=== PATIENT | male | born 1940 | race Caucasian/White ===

== ENCOUNTER 2019-04-21 08:03 | Emergency (ER) | payer MEDICARE, OTHER ==
[~2019-04-21] VITALS: Ht 167.6 cm; Wt 81.6 kg
[2019-04-21 08:23] VITALS: BP 158/76
[2019-04-21] MEDS ORDERED: LIDOCAINE VISCOUS 2% 15ML UD PO ONE (08:30)
[2019-04-21] MEDS ORDERED: cefTRIAXone 1GM/50ML D5W 50 ML IV ONE (08:30)
[2019-04-21] MEDS ORDERED: methylPREDNISolone SOD SUCC 125 MG/2 ML VL IV ONE (08:30)
[2019-04-21] MEDS ORDERED: CLINDAMYCIN 600MG IV 50 ML IV ONE (08:45)
== END 2019-04-21 09:54 | disposition home or self-care (01) ==
LOC: ER 08:06
DX: S01.532A Puncture wound without foreign body of oral cavity, initial encounter (principal); K12.2 Cellulitis and abscess of mouth; E11.9 Type 2 diabetes mellitus without complications; I10 Essential (primary) hypertension; Z88.2 Allergy status to sulfonamides; W50.4XXA Accidental scratch by another person, initial encounter; Y93.89 Activity, other specified; Y92.89 Other specified places as the place of occurrence of the external cause; Y99.8 Other external cause status
CPT/HCPCS: 96365; 96375; 99283; J0696; J2930; J3490

== ENCOUNTER 2019-05-03 06:35 | Emergency (ER) | payer MEDICARE, OTHER ==
[~2019-05-03] VITALS: Ht 167.6 cm; Wt 81.6 kg
[2019-05-03 06:58] VITALS: BP 112/76
[2019-05-03] MEDS ORDERED: cefTRIAXone SOD 1,000 MG VL IM ONE (07:15)
[2019-05-03] MEDS ORDERED: LIDOCAINE VISCOUS 2% 15ML UD PO ONE (07:15)
[2019-05-03] MEDS: methylPREDNISolone SOD SUCC 125 MG/2 ML VL IM ONE ×2 (07:23→07:36)
== END 2019-05-03 07:37 | disposition home or self-care (01) ==
LOC: ER 06:35
DX: K12.2 Cellulitis and abscess of mouth (principal); E11.9 Type 2 diabetes mellitus without complications; E78.5 Hyperlipidemia, unspecified; I10 Essential (primary) hypertension; Z88.2 Allergy status to sulfonamides
CPT/HCPCS: 96372; 99283; J2930

== ENCOUNTER 2025-09-12 14:57 | Emergency (ER) | payer MEDICARE, OTHER ==
[~2025-09-12] VITALS: Ht 170.2 cm; Wt 79.3 kg
[2025-09-12] MEDS: NEOMYCIN-BACITRACIN-POLYM UNITDOSE PKG TOP OINT TOP ONE (16:24)
[2025-09-12] MEDS: TETANUS-DIPTH-ACEL PERTUSSIS 0.5ML SYR Tdap IM ONE (16:25)
[2025-09-12] MEDS: LIDOCAINE 1% HCL (LOCAL ANESTH.) INJ 20ML MDV ID ONE (16:26)
[2025-09-12] MEDS ORDERED: AUG875T PO (16:55)
--- NOTE | 2025-09-12 16:55 | ED.PDOC ---
History of Present Illness(SKN HPI Comments 85-year-old male presents to the ER with a prior MHx of diabetes in the chief complaint of animal attack. The patient reports that he was attacked bite to dogs 0, today. The patient does have multiple puncture wounds to the bilateral hands and an abrasion on the left elbow. Denies any other symptoms at this time. Chief Complaint: Animal Bite Time Seen by MD: 16:30 Primary Care Provider: TRACY History of Present Illness: Nurses Notes, Medications, Allergies Allergies: Coded Allergies: Sulfa Antibiotics (Verified Allergy, Unknown, 04/21/19) Home Meds Active Scripts Amoxicillin & Pot Clavulanate (AUGMENTIN TABLET) 875 Mg Tb, 875 MG PO BID for 7 Days, #14 TAB 0 Refills Prov:MOOMARLIN NP 09/12/25 Information Source: Patient, Spouse Mode of Arrival: Ambulatory Severity: Moderate Timing: Minutes Duration: Since onset, Minutes Prehospital treatment: None Location: Hand Mechanism: Dog Occurence: Outdoors Object: None Condition of Object: None Retained Foreign Body: Unknown Wound Type: Laceration, Abrasion, Puncture Immunization Status of Animal: Unknown Tetanus: >5 Years History of: None Associated Signs and Symptoms: Abrasion Past Medical History PAST MEDICAL HISTORY: DM, High Lipids, HTN Surgical History: Denies all surgeries Family History Family History: Unknown Social History Smoker: Non-Smoker Lives In: Home Constitutional: denies: chills, diaphoresis, fatigue, fever, malaise, sweats, weakness, others EENTM: denies: blurred vision, double vision, ear bleeding, ear discharge, ear drainage, ear pain, ear ringing, eye pain, eye redness, hearing loss, mouth pain, mouth swelling, nasal discharge, nose bleeding, nose congestion, nose pain, photophobia, tearing, throat pain, throat swelling, voice changes, others Respiratory: denies: cough, hemoptysis, orthopnea, SOB at rest, shortness of breath, SOB with excertion, stridor, wheezing, others Cardiovascular: denies: chest pain, dizzy spells, diaphoresis, Dyspnea on exertion, edema, irregular heart beat, left arm pain, lightheadedness, palpitations, PND, syncope, others Gastrointestinal: denies: abdomen distended, abdominal pain, blood streaked bowels, constipated, diarrhea, dysphagia, difficulty swallowing, hematemesis, melena, nausea, poor appetite, poor fluid intake, rectal bleeding, rectal pain, vomiting, others Genitourinary: denies: burning, dysuria, flank pain, frequency, hematuria, incontinence, penile discharge, penile sore, pain, testicle pain, testicle swelling, urgency, others Neurological: denies: dizziness, fainting, headache, left sided numbness, left sided weakness, numbness, paresthesia, pre-existing deficit, right sided numbness, right sided weakness, seizure, speech problems, tingling, tremors, weakness, others Musculoskeletal: denies: back pain, gout, joint pain, joint swelling, muscle pain, muscle stiffness, neck pain, others Integumetry: reports: others (Puncture wound, abrasion, laceration to the bilateral hands and left elbow); denies: bruises, change in color, change in hair/nails, dryness, laceration, lesions, lumps, rash, wounds Allergic/Immunocompromised: denies: Difficulty Healing, Frequent Infections, Hives, Itching, others Hematologic/Lymphatic: denies: anemia, blood clots, easy bleeding, easy bruising, swollen glands, others Endocrine: denies: excessive hunger, excessive sweating, excessive thirst, excessive urination, flushing, intolerance to cold, intolerance to heat, unexplained weight gain, unexplained weight loss, others Psychiatric: denies: anxiety, bipolar disorder, depression, hopeless, panic disorder, schizophrenia, sleepless, suicidal, others All Other Systems: Reviewed and Negative Physical Exam Exam Comments Puncture wound to the medial aspect of the right 2nd phalanx between in between the MCP and IP, and in the wedge, and abrasions to the left elbow General Appearance: No Apparent Distress, Normal HEENT: Normal ENT Inspection, Pharynx Normal, TMs Normal Neck: Full Range of Motion, Non-Tender, Normal, Normal Inspection Respiratory: Chest Non-Tender, Lungs Clear, No Accessory Muscle Use, No Respiratory Distress, Normal Breath Sounds Cardiovascular: No Edema, No JVD, No Murmur, No Gallop, Normal Peripheral Pulses, Regular Rate/Rhythm Breast Exam: Deferred Gastrointestinal: No Organomegaly, Non Tender, No Pulsatile Mass, Normal Bowel Sounds, Soft Genitalia: Deferred Pelvic: Deferred Rectal: Deferred Extremities: No calf tenderness, Normal capillary refill, Normal inspection, Normal range of motion, Non-tender, No pedal edema Musculoskeletal : Apperance: Normal Neurologic: Alert, performance specialist II-XII nml as Tested, No Motor Deficits, Normal Affect, Normal Mood, No Sensory Deficits Cerebellar Function: Normal Reflexes: Normal Skin: Dry, Normal Color, Warm Lymphatic: No Adenopathy Was a procedure done? Was a procedure done?: Yes Sedation Sedation?: No Laceration Repair : Location Between the wedge of the 1st and 2nd phalanx of the right hand and Puncture wound to the medial aspect of the right 2nd phalanx between in between the MCP and IP Length 1cm Anesthetic: Lidocaine, Without epi Laceration Repair Prep: Saline Laceration Repair Wound Comple: epidermis/dermis repair Laceration Repair: Number of sutures (3 in total=1 to the wound to the medial aspect of the right 2nd phalanx between in between the MCP and IP, and 2 in the wedge), Size (Ethilon 4-0) Informed consent obtained: Yes Risks, benefits, and alternati: Yes X-Ray, Labs, Meds, VS Vital Signs Date Time Temp Pulse Resp B/P (MAP) Pulse Ox O2 Delivery O2 Flow Rate FiO2 09/12/25 17:03 98.7 78 16 138/72 (94) 98 98.7 09/12/25 17:03 78 16 97 Room Air 09/12/25 15:00 97.5 56 18 143/73 96 97.5 Current Medications Medications (Trade) Dose Ordered Sig/Maki Route Start Time Stop Time Status Last Admin Diphtheria/ Tetanus/Acell Pertussis (Boostrix T-Dap) 0.5 ml ONCE ONCE IM 09/12/25 16:15 09/12/25 16:18 DC 09/12/25 16:25 Neomycin/ Polymyxin/ Bacitracin (Triple Antibiotic) 1 applic ONCE ONCE TOP 09/12/25 16:15 09/12/25 16:18 DC 09/12/25 16:24 X-Ray, Labs, Meds, VS Comment 85-year-old male presents to the ER with a prior MHx of diabetes in the chief complaint of animal attack. Patient arrives alert and oriented, ABC's intact, afebrile, vital signs stable, saturating well in room air The skin edges of the laceration were infiltrated with 1% lidocaine The skin surrounding the laceration was scrubbed with Betadine soaked sterile gauze The laceration was irrigated under high-pressure with a 60 mL syringe A total of 1L sterile water was used. Including diluted Betadine solution The laceration was prepped in sterile fashion with sterile drapes On examination under direct light, there was no foreign body seen The laceration was repaired in simple interrupted technique using Ethilon 4-0 There was no continuing bleeding on repair. There were no complications related to repair Antibiotics Tetanus prophylaxis: Education and follow-up instructions provided Wound check in 2 days Return sooner for signs of infection such as fevers, increased pain, redness, green, yellow discharge, or any concerns Keep wound dry for 24 to 48 hours; dry dressing may be changed Protect from sunlight and keep area clean and dry. Use soap and water if it gets dirty High risk of possible scarring and education provided on ways to minimize scarring after wound heals Also provided education on possible complications post procedure including wound dehiscence, infection, etc. Additional MDM Review of External, Non-ED records: External records reviewed. Discussion with independent historian (EMS, family) history obtained from the patient/parents (if applicable) at bedside Chronic conditions affecting care: None Social determinants of health affecting care: None Consideration of admission (observation or admission): I considered escalation of care to admission for this patient, however given the reassuring workup, the patient is safe for outpatient management. Discussion with the Radiology: No Tests considered but not performed: Prescription medication considered but not given: Time of 1ST Reevaluation: 17:00 Reevaluation 1ST: Unchanged Patient Education/Counseling: Diagnosis, Treatment, Prognosis Family Education/Counseling: Diagnosis, Treatment, Prognosis SEPSIS Sepsis Screen Date sepsis recognized/suspect: Sep 12, 2025 Time Sepsis recognized/suspect: 1458 Recent Procedure: No On Antibiotic Therapy: No Respiratory Rate >20: No Heart Rate >90: No Temp<36 C (96.8 F) or >38.3 C: No SBP <90 or MAP <65 mmHG: No New Acute Mental Status Change: No Is the patient on CPAP, BIPAP,: No Vital Signs Date Time Temp Pulse Resp B/P (MAP) Pulse Ox O2 Delivery O2 Flow Rate FiO2 09/12/25 17:03 98.7 78 16 138/72 (94) 98 98.7 09/12/25 17:03 78 16 97 Room Air 09/12/25 15:00 97.5 56 18 143/73 96 97.5 Departure 1 Departure Time of Disposition: 17:01 Impression: Primary Impression: Dog bite Qualified Codes: W54.0XXA - Bitten by dog, initial encounter Disposition: HOME / SELF CARE / HOMELESS Condition: Stable e-Prescriptions Amoxicillin & Pot Clavulanate (AUGMENTIN TABLET) 875 Mg Tb 875 MG PO BID for 7 Days, #14 TAB 0 Refills Prov: MARLIN CORTÉS NP 09/12/25 Discharged With: Self, Spouse Critical Care Note Critical Care Time?: No Stability Stability form required: No I personally scribed for MARLIN CORTÉS COLON THERAPIST ([email or web address]) on 09/12/25 at 16:55. Electronically submitted by Bautista Martinez ([email or web address]). I personally scribed for MARLIN CORTÉS COLON THERAPIST ([email or web address]) on 09/12/25 at 16:57. Electronically submitted by Bautista Martinez ([email or web address]). MARLIN CORTÉS COLON THERAPIST Sep 12, 2025 16:55
[2025-09-12 17:03] VITALS: BP 138/72; PULSE 78; RESP 16; TEMP 98.7; O2SAT 97
== END 2025-09-12 17:05 | disposition home or self-care (01) ==
LOC: ER 14:57
DX: S61.451A Open bite of right hand, initial encounter (principal); S61.452A Open bite of left hand, initial encounter; I10 Essential (primary) hypertension; E11.9 Type 2 diabetes mellitus without complications; Z88.2 Allergy status to sulfonamides; W54.0XXA Bitten by dog, initial encounter; Y93.89 Activity, other specified; Y92.89 Other specified places as the place of occurrence of the external cause; Y99.8 Other external cause status
CPT/HCPCS: 12001; 90471; 90715; 99283; A4649; J2003

== ENCOUNTER 2025-09-14 10:36 | Emergency (ER) | payer OTHER ==
[~2025-09-14 10:36] MED LIST: AUG875T PO
[2025-09-14 10:39] VITALS: BP 140/82; PULSE 60; RESP 18; TEMP 97.6; O2SAT 98
== END 2025-09-14 12:03 | disposition left against medical advice (07) ==
LOC: ER 10:36
DX: Z48.00 Encounter for change or removal of nonsurgical wound dressing (principal); Z53.21 Procedure and treatment not carried out due to patient leaving prior to being seen by health care provider